=== PATIENT | female | born 1955 | race African-American/Black ===

== ENCOUNTER 2016-10-07 18:15 | Emergency (ER) | payer MEDICARE ==
[~2016-10-07] VITALS: Ht 167.6 cm; Wt 70.8 kg
[~2016-10-07 18:15] MED LIST: ALBUTEROL SULF8.5 GM INH; ANTIVERT25 MG ORAL; BENADRYL25 M3 PO; CEFDINIR250 MG/5 M PO; FLONASE1 SPRAYS NASAL; PREDNISONE20 MG ORAL
[2016-10-07 18:48] VITALS: BP 120/62
[2016-10-07] MEDS ORDERED: ALBUTEROL SULF8.5 GM INH (18:57)
[2016-10-07] MEDS ORDERED: PREDNISONE20 MG ORAL (18:57)
[2016-10-07] MEDS ORDERED: PROMETHAZINE-D118 ML ORAL (18:57)
[2016-10-07 19:02] VITALS: BP 118/68
--- NOTE | 2016-10-09 19:35 | Emergency Room Report ---
History of Present Illness General Chief Complaint: Flu Like Symptoms Source: Patient Present Illness HPI 61-year-old female presents to ED complaining of bodyaches and coughing x4 days. Cough is dry. No aggravating or relieving factors. Denies fevers or chills. History of asthma. Patient complaining of generalized bodyaches, 6/10 , dull, nonradiating. No aggravating or relieving factors. Denies sick contacts or recent travel. Denies any other associated symptoms Allergies: Coded Allergies: ACETAMINOPHEN (Verified Allergy, Unknown, 01/14/16) CEPHALEXIN (Verified Allergy, Unknown, 01/14/16) CLINDAMYCIN (Verified Allergy, Unknown, 01/14/16) ERYTHROMYCIN BASE (Verified Allergy, Unknown, 01/14/16) HYDROCODONE (Verified Allergy, Unknown, 01/14/16) KIWI (Verified Allergy, Unknown, 01/14/16) MELOXICAM (Verified Allergy, Unknown, 01/14/16) PENICILLINS (Verified Allergy, Unknown, 01/14/16) RASPBERRY (Verified Allergy, Unknown, 01/14/16) SHELLFISH DERIVED (Verified Allergy, Unknown, 01/14/16) SULFAMETHOXAZOLE (Verified Allergy, Unknown, 01/14/16) TRIMETHOPRIM (Verified Allergy, Unknown, 01/14/16) Patient History Past Medical History: asthma Past Surgical History: none Pertinent Family History: none Social History: Denies: alcohol use, drug use, smoking Now: No Immunizations: UTD Reviewed Nursing Documentation: PMH: Agreed, PSxH: Agreed Nursing Documentation-PMH Hx Asthma: Yes Review of Systems All Other Systems: negative except mentioned in HPI Physical Exam Vital Signs Date Time Temp Pulse Resp B/P Pulse Ox O2 Delivery O2 Flow Rate FiO2 10/07/16 18:20 98.4 74 17 123/87 98 Room Air Sp02 EP Interpretation: reviewed, normal General Appearance: no apparent distress, alert, GCS 15, non-toxic Head: normocephalic Eyes: bilateral eye PERRL, bilateral eye normal inspection ENT: normal ENT inspection Neck: normal inspection Respiratory: chest non-tender, lungs clear, normal breath sounds, speaking full sentences Cardiovascular #1: regular rate, rhythm, no edema Gastrointestinal: normal bowel sounds, non tender, soft, non-distended, no guarding, no rebound Rectal: deferred Genitourinary: no CVA tenderness Musculoskeletal: normal inspection Neurologic: alert, oriented x3, responsive, motor strength/tone normal, sensory intact, speech normal Psychiatric: normal inspection Skin: normal inspection Lymphatic: normal inspection Medical Decision Making Diagnostic Impression: Primary Impression: Bronchitis ER Course Hospital Course 61-year-old female presents to ED complaining of cough, bodyaches Differential diagnoses include: URI, pharyngitis, otitis media, asthma Clinical course Patient placed on stretcher. After initial history, physical exam reveals an elderly female in no acute distress. Bilateral TM unremarkable. No pharyngeal erythema. No tonsillar exudates. No lymphadenopathy. lungs clear. abdomen soft. Clinical findings consistent with bronchitis. Reassurance given to parents. treatment is supportive therapy Diagnosis - bronchitis Stable and discharged home with Rx albuterol, prednisone, cough syrup. Instructed to followup with PMD. Return to ED if symptoms recur or worsen Last Vital Signs Date Time Temp Pulse Resp B/P Pulse Ox O2 Delivery O2 Flow Rate FiO2 10/07/16 19:02 97.8 72 17 118/68 98 Room Air Status: improved Disposition: HOME, SELF-CARE Condition: Stable Scripts Albuterol Sulfate* (ALBUTEROL SULFATE MDI*) 8.5 Gm Hfa.aer.ad 2 PUFF INH Q4H Y for cough/wheezing, #1 EA 0 Refills Prov: JODIE VAZQUEZ M.D. 10/07/16 Prednisone* (PREDNISONE*) 20 Mg Tablet 40 MG ORAL DAILY, #10 TAB Prov: JODIE VAZQUEZ M.D. 10/07/16 D-Methorphan Hb/Prometh Hcl* (PROMETHAZINE-DM SYRUP*) 118 Ml Syrup 5 ML ORAL Q4H Y for For Cough for 7 Days, ML 0 Refills Prov: JODIE VAZQUEZ M.D. 10/07/16 Referrals: NON PHYSICIAN (PCP) Patient Instructions: Acute Bronchitis, [place] JODIE VAZQUEZ M.D. Oct 09, 2016 19:35
== END 2016-10-07 19:02 | disposition home or self-care (01) ==
LOC: EMR 18:50
DX: J40 Bronchitis, not specified as acute or chronic (principal); J45.909 Unspecified asthma, uncomplicated; R52 Pain, unspecified; R05 Cough; Z88.6 Allergy status to analgesic agent; Z88.5 Allergy status to narcotic agent; Z88.1 Allergy status to other antibiotic agents; Z88.2 Allergy status to sulfonamides
CPT/HCPCS: 99284

== ENCOUNTER → 2017-09-27 | Emergency (ER) | payer MEDICARE ==
[~2017-09-27] VITALS: Ht 167.6 cm; Wt 68.9 kg
[~2017-09-27] MED LIST changes: +GUAIFEN-CODEINE10 ML PO; +LEVAQUIN500 MG ORAL; +PROMETHAZINE-D118 ML ORAL; +TAMIFLU75 MG ORAL
[2017-09-27 14:47] VITALS: BP 150/91
--- NOTE | 2017-10-02 08:32 | Emergency Room Report ---
History of Present Illness General Chief Complaint: Upper Respiratory Illness Source: Patient Present Illness HPI Patient present with complaints of cough and congestion reports some sputum production ongoing for the past several days Patient denies any headache or visual changes denies any neck pain or photophobia Patient felt somewhat weak as well denies any focal weakness however Denies any dysuria frequency denies any chest pain Given the cough patient was concerned and presents to the ER Mild bodyache Allergies: Coded Allergies: CEPHALEXIN (Verified Allergy, Unknown, 01/14/16) CLINDAMYCIN (Verified Allergy, Unknown, 01/14/16) ERYTHROMYCIN BASE (Verified Allergy, Unknown, 01/14/16) HYDROCODONE (Verified Allergy, Unknown, 01/14/16) KIWI (Verified Allergy, Unknown, 01/14/16) MELOXICAM (Verified Allergy, Unknown, 01/14/16) PENICILLINS (Verified Allergy, Unknown, 01/14/16) RASPBERRY (Verified Allergy, Unknown, 01/14/16) SHELLFISH DERIVED (Verified Allergy, Unknown, 01/14/16) SULFAMETHOXAZOLE (Verified Allergy, Unknown, 01/14/16) TRIMETHOPRIM (Verified Allergy, Unknown, 01/14/16) Patient History Past Medical History: see triage record Pertinent Family History: none Reviewed Nursing Documentation: PMH: Agreed, PSxH: Agreed Nursing Documentation-PMH Hx Asthma: Yes Hx Diabetes: Yes Review of Systems All Other Systems: negative except mentioned in HPI Physical Exam Vital Signs Date Time Temp Pulse Resp B/P (MAP) Pulse Ox O2 Delivery O2 Flow Rate FiO2 09/27/17 14:47 99.9 91 18 150/91 96 Room Air Sp02 EP Interpretation: reviewed, normal General Appearance: well appearing, no apparent distress Head: normocephalic, atraumatic Eyes: bilateral eye PERRL, bilateral eye EOMI ENT: hearing grossly normal, normal pharynx, TMs + canals normal, uvula midline Neck: full range of motion, supple, no meningismus, no bony tend Respiratory: lungs clear, normal breath sounds, no rhonchi, no respiratory distress, no retraction, no accessory muscle use Cardiovascular #1: normal peripheral pulses, regular rate, rhythm, no edema, no gallop, no JVD, no murmur Gastrointestinal: normal bowel sounds, non tender, soft, no mass, no organomegaly, non-distended, no guarding, no hernia, no pulsatile mass, no rebound Genitourinary: no CVA tenderness Musculoskeletal: normal inspection Neurologic: oriented x3, responsive, business relationship manager III-XII nml as tested, motor strength/ tone normal, sensory intact Psychiatric: mood/affect normal Skin: normal color, no rash, warm/dry, palpation normal Lymphatic: normal inspection, no adenopathy Medical Decision Making Diagnostic Impression: Primary Impression: pneumonia ER Course Patient appears clinically well Does not appear septic or toxic respirations and oxygenation are appropriate given the duration of symptoms patient was diagnosed with clinical community acquired pneumonia patient is placed on antibiotics And will have close initial followup Last Vital Signs Date Time Temp Pulse Resp B/P (MAP) Pulse Ox O2 Delivery O2 Flow Rate FiO2 09/27/17 14:47 99.9 91 18 150/91 96 Room Air Status: unchanged Disposition: HOME, SELF-CARE Condition: Stable Scripts Codeine Phosphate/Guaifenesin (GUAIFEN-CODEINE 200-20 MG/10ML) 10 Ml Liquid 10 ML PO QHS for 5 Days, ML Prov: ERIC PLUMMER D.O. 09/27/17 Oseltamivir Phosphate (Tamiflu) 75 Mg Capsule 75 MG ORAL DAILY for 5 Days, CAP Prov: ERIC PLUMMER D.O. 09/27/17 Levofloxacin* (LEVAQUIN*) 500 Mg Tablet 500 MG ORAL DAILY for 7 Days, TAB Prov: ERIC PLUMMER D.O. 09/27/17 Referrals: NON PHYSICIAN (PCP) Patient Instructions: Community-Acquired Pneumonia, Adult, [id number] Additional Instructions: Patient is provided with the discharge instructions notified to follow up with primary doctor in the next 2-3 days otherwise return to the er with any worsening symptoms. Please note that this report is being documented using [employer] technology. This can lead to erroneous entry secondary to incorrect interpretation by the dictating instrument. ERIC PLUMMER D.O. Oct 02, 2017 08:32
== END | disposition home or self-care (01) ==
LOC: EMR 15:45
DX: J18.9 Pneumonia, unspecified organism (principal); E11.9 Type 2 diabetes mellitus without complications; J45.909 Unspecified asthma, uncomplicated; Z88.1 Allergy status to other antibiotic agents; Z88.2 Allergy status to sulfonamides; Z88.0 Allergy status to penicillin; Z91.013 Allergy to seafood; Z88.8 Allergy status to other drugs, medicaments and biological substances
CPT/HCPCS: 99284

== ENCOUNTER 2019-05-19 15:42 | Emergency (ER) | payer MEDICARE ==
[~2019-05-19] VITALS: Ht 170.2 cm; Wt 68.5 kg
--- NOTE | 2019-05-19 16:15 | NUR ---
ED Nurse Note: Patient walked into ED c/o sorethroat with coughing and left earache for three days. patient is alert awake x4 ambulatory, breathing unlabored and even
[2019-05-19] MEDS ORDERED: CEPHALEXIN500 MG ORAL (16:29)
[2019-05-19] MEDS ORDERED: CEPHALEXIN250 MG/5 M ORAL (16:36)
--- NOTE | 2019-05-19 16:40 | NUR ---
ER DISCHARGE NOTE: Patient is cleared to be discharged per ERMD DR VAZQUEZ, pt is aox4, on room air, with stable vital signs. pt was given dc and prescription instructions, pt was able to verbalize understanding, pt id band removed without complications. pt is able to ambulate with steady gait. pt took all belongings.
[2019-05-19 16:41] VITALS: BP 128/72
[2019-05-19 16:42] VITALS: BP 130/81
--- NOTE | 2019-05-19 21:27 | Emergency Room Report ---
History of Present Illness General Chief Complaint: Upper Respiratory Illness Source: Patient Present Illness HPI 64-year-old female presents ED for evaluation. Complaining of sore throat, ear pain for the last 3 days. Pain is throbbing, 7 out of 10, nonradiating. States that her grandchildren have been sick with similar symptoms recently. Denies nausea or vomiting. No other aggravating relieving factors. Denies any other associated symptoms Allergies: Coded Allergies: CLINDAMYCIN (Verified Allergy, Unknown, 01/14/16) ERYTHROMYCIN BASE (Verified Allergy, Unknown, 01/14/16) HYDROCODONE (Verified Allergy, Unknown, 01/14/16) KIWI (Verified Allergy, Unknown, 01/14/16) MELOXICAM (Verified Allergy, Unknown, 01/14/16) PENICILLINS (Verified Allergy, Unknown, 01/14/16) RASPBERRY (Verified Allergy, Unknown, 01/14/16) SHELLFISH DERIVED (Verified Allergy, Unknown, 01/14/16) SULFAMETHOXAZOLE (Verified Allergy, Unknown, 01/14/16) TRIMETHOPRIM (Verified Allergy, Unknown, 01/14/16) Patient History Past Medical History: DM, asthma Past Surgical History: none Pertinent Family History: none Social History: Denies: smoking, alcohol use, drug use Last Menstrual Period: N/A Now: No : 5 Para: 2 Immunizations: UTD Reviewed Nursing Documentation: PMH: Agreed; PSxH: Agreed Nursing Documentation-PMH Hx Asthma: Yes Hx Diabetes: Yes Review of Systems All Other Systems: negative except mentioned in HPI Physical Exam Vital Signs Date Time Temp Pulse Resp B/P (MAP) Pulse Ox O2 Delivery O2 Flow Rate FiO2 05/19/19 16:08 98.1 69 18 130/81 (97) 96 Room Air Sp02 EP Interpretation: reviewed, normal General Appearance: no apparent distress, alert, GCS 15, non-toxic Head: normocephalic Eyes: bilateral eye normal inspection, bilateral eye PERRL ENT: hearing grossly normal, TMs + canals normal, pharyngeal erythema, tonsillar exudate Neck: full range of motion, supple, no meningismus, supple/symm/no masses Respiratory: normal inspection Cardiovascular #1: normal inspection Gastrointestinal: normal inspection Rectal: deferred Genitourinary: no CVA tenderness Musculoskeletal: normal inspection Neurologic: alert, oriented x3, responsive, motor strength/tone normal, sensory intact, speech normal Psychiatric: normal inspection Skin: no rash Lymphatic: normal inspection Medical Decision Making Diagnostic Impression: Primary Impression: Pharyngitis Qualified Codes: J02.9 - Acute pharyngitis, unspecified ER Course Hospital Course 64 yo F presents to ED c/o sore throat and earache Differential diagnoses include: URI, pharyngitis, otitis media Clinical course Patient placed on stretcher. After initial history, physical exam reveals an elderly female in no acute distress. Bilateral TM unremarkable. There is pharyngeal erythema w/ tonsillar exudates. No lymphadenopathy. Clinical findings consistent with pharyngitis. Discussed findings with patient's. Will discharge with antibiotics. Safe for discharge for close outpatient follow-up. Diagnosis - pharyngitis Stable and discharged home with prescriptions for keflex. Instructed to followup with PMD. return to ED if symptoms recur or worsen Last Vital Signs Date Time Temp Pulse Resp B/P (MAP) Pulse Ox O2 Delivery O2 Flow Rate FiO2 05/19/19 16:42 98.1 18 130/81 96 Room Air 05/19/19 16:41 69 Status: improved Disposition: HOME, SELF-CARE Condition: Stable Scripts Cephalexin* (CEPHALEXIN*) 250 Mg/5 Ml Susp.recon 500 MG ORAL FOUR TIMES A DAY for 7 Days, #100 ML 0 Refills Prov: Uriah Lobo MD 05/19/19 [facility] Patient Instructions: Pharyngitis, [id number] Uriah Lobo MD May 19, 2019 21:27
== END 2019-05-19 17:00 | disposition home or self-care (01) ==
LOC: EMR 16:47
DX: J02.9 Acute pharyngitis, unspecified (principal); E11.9 Type 2 diabetes mellitus without complications; J45.909 Unspecified asthma, uncomplicated; Z91.013 Allergy to seafood; Z88.1 Allergy status to other antibiotic agents; Z88.2 Allergy status to sulfonamides; Z88.6 Allergy status to analgesic agent; Z88.0 Allergy status to penicillin; Z91.018 Allergy to other foods
CPT/HCPCS: 99282